=== PATIENT | female | born 1960 | race Caucasian/White ===

== ENCOUNTER 2017-04-13 11:33 | Day surgery (SDC) | payer OTHER ==
[2017-04-13] MEDS ORDERED: CEFAZOLIN 1 GM/50 ML (PMX) 50 ML IVPB (13:17)
[2017-04-13] MEDS ORDERED: LIDOCAINE 4% SOLUTION 50 ML BTL (13:38)
[2017-04-13] MEDS ORDERED: FENTAnyl 50 MCG/ML VIAL (14:02)
[2017-04-13] MEDS ORDERED: MIDAZOLAM 1 MG/ML 2 ML INJ ×2 (14:02)
== END 2017-04-13 14:43 | disposition home or self-care (01) ==
LOC: GIL 11:33
DX: I85.00 Esophageal varices without bleeding (principal)
CPT/HCPCS: 43235